=== PATIENT | male | born 2005 | race Caucasian/White ===

== ENCOUNTER 2024-10-21 14:39 | Emergency (ER) | payer OTHER, SELFPAY ==
[2024-10-21 14:44] VITALS: BP 146/78
[2024-10-21 15:06] LABS: % Basophils 0.3 % (0-2); % Eosinophils 0.8 % (0-6); % Immature Granulocytes 0.2 % (0-0.5); % Monocytes 8.5 % (1.7-9.3); % Neutrophils 74.2 % (42.2-75.2); Absolute Eosinophils 0.1 10^3/uL (0-0.7); Absolute Lymphocytes 1.5 10^3/uL (1.2-3.4); Absolute Monocytes 0.8 10^3/uL (0.1-0.6); Absolute Neutrophils 7.1 10^3/uL (1.4-6.5); Hematocrit 43.2 % (39.0-52.0); Hemoglobin 14.3 g/dL (13.0-18.0); Mean Corp Hgb Conc. 33.1 g/dL (33.0-37.0); Mean Corpuscular Hgb 29.5 pg (27.0-31.0); Mean Corpuscular Volume 89.1 fL (80.0-94.0); Mean Platelet Volume 9.2 fL (7.4-10.4); Nucleated Red Blood Cells % 0 % (-); Platelet Count 214 10^3/uL (130-400); Red Blood Cell Count 4.85 10^6/uL (4.70-6.10); Red Cell Dist. Width 13.9 % (11.5-14.5); Urine Albumin Negative (Neg - Trace); Urine Bilirubin Negative (Negative); Urine Character Clear (Clear); Urine Color Yellow; Urine Glucose Negative (Negative); Urine Ketone Negative (Negative); Urine Leukocyte Negative (Negative); Urine Nitrite Negative (Negative); Urine Occult Blood Negative (Negative); Urine Urobilinogen Negative (Neg - 1+); White Blood Cell Count 9.6 10^3/uL (4.8-10.8)
[2024-10-21 15:23] LABS: ALT (SGPT) 29 U/L (0-50); AST (SGOT) 28 U/L (17-59); Albumin 4.8 g/dl (3.5-5.0); Alkaline Phosphatase 41 U/L (38-126); Blood Urea Nitrogen 22 mg/dl (9-20); Calcium 9.9 mg/dl (8.4-10.2); Carbon Dioxide 32 mmol/L (22-30); Chloride 106 mmol/L (98-107); Glucose 92 mg/dl (70-99); Lipase 107 U/L (23-300); Potassium 4.7 mmol/L (3.5-5.1); Sodium 143 mmol/L (135-145); Total Bilirubin 0.8 mg/dl (0.2-1.3); Total Protein 7.7 g/dl (6.3-8.2); eGFR > 60.00
--- NOTE | 2024-10-21 18:16 | ED.GENMED ---
History of Present Illness
General
Chief Complaint: Abdominal Pain
Source: patient
Exam Limitations: none
Time Seen by Provider: 10/21/24 17:59
History of Present Illness
History of Present Illness:
See MDM
Past History
Past History
ED Past Medical History: None
ED Past Surgical History: None
Social History
Tobacco: Non-smoker
Alcohol: None
Phy Exam
Physical Exam
Physical Exam:
See MDM
Course
Orders/Labs/Results
Orders:
Orders
10/21/24 14:50
US Scrotum Urgent
Comment:
Reason For Exam: R testicular pain
10/21/24 14:58
Complete Blood Count/With Diff Urgent
Comprehensive Metabolic Panel Urgent
Lipase Urgent
Urinalysis Reflex To Culture Urgent
Date Specimen was Collected: 10/21/24
Time Specimen was Collected: 14:50
10/21/24 18:15
CT Abd/pel Without Iv Or Oral Urgent
Comment:
Reason For Exam: R groin pain
Abnormal Lab Results
10/21/24
14:58
Absolute Neuts (auto) 7.1 H 10^3/uL
(1.4-6.5)
Absolute Monos (auto) 0.8 H 10^3/uL
(0.1-0.6)
Lymphocytes % 16.0 L %
(20.5-51.1)
Carbon Dioxide 32 H mmol/L
(22-30)
BUN 22 H mg/dl
(9-20)
10/21/24 14:58
10/21/24 14:58
Vital Signs
Initial and Last Documented VS:
Initial Vital Signs
Temp Pulse Resp BP Pulse Ox
97.9 F 60 18 146/78 97
10/21/24 14:44 10/21/24 14:44 10/21/24 14:44 10/21/24 14:44 10/21/24 14:44
Last Documented Vital Signs
Temp Pulse Resp BP Pulse Ox
97.9 F 60 18 111/60 100
10/21/24 14:44 10/21/24 14:44 10/21/24 14:44 10/21/24 18:40 10/21/24 18:41
MDM/Problems Addressed
Differential Diagnosis Includes:
HPI and MDM Narrative:
19-year-old male presenting with resolved right groin pain. Patient states he was working on a tractor with his father and developed sudden onset of right groin pain. He describes the pain in his abdomen going down into his groin. This has been
an intermittent issue in the past but it has never been this bad. On arrival, all symptoms appear to have resolved. On my exam, he has very mild tenderness near the epididymis but ultrasound shows no evidence of torsion or epididymitis. We went
over the incidental findings of the ultrasound and discussed outpatient follow-up with urology. Given the mild pain in the area, will obtain CT to rule out any evidence of kidney stone versus inguinal herniation
Physical exam
General: Well appearing and non-toxic
HEENT: protecting airway
Neck: appears supple
CV: No evidence of cyanosis
Resp: No accessory muscle use
Abd: Non-distended
: No scrotal swelling or clinical evidence of torsion. Mild tenderness to right inguinal canal
Extremities: No deformities
Neuro: alert
Psych: Normal affect
Skin: Intact
Problems Addressed including Acute and Chronic Conditions affecting care:
1. Right groin pain
Acuity: acute
Prognosis: stable
Details: Potentially related to a strain. Ultrasound negative for torsion or epididymitis. Will obtain CT to rule out any evidence of kidney stone or hernia
Updates
Urinalysis negative. Ultrasound negative. Given the intermittent pain, will obtain CT to rule out any evidence of hernia versus kidney stone.
CT negative. Discussed the incidental finding of constipation. Discussed follow-up with urology
Differential Diagnosis (but not limited to): Groin strain, epididymitis, intermittent torsion, inguinal hernia, kidney
Testing considered: CT with IV contrast
Drug therapy (if applicable): OTC meds, please see d/c instruction regarding Rx drugs
Amount and/or Complexity of Data Reviewed
Clinical info obtained from: Patient
External data reviewed: N/A
Labs I independently reviewed (but not limited to): Urinalysis negative, white blood cell count normal
Radiology: Ultrasound report reviewed
The CT scan was personally and independently reviewed. In addition, official CT report reviewed.
Pulse Ox: not hypoxic
EKG independently reviewed: N/A
Finish Production Manager: N/A
Critical Care: N/A
Risk of Complication:
Social Determinants of health: Good social support
Discussed with other providers: N/A
Escalation of Care includes Admit/Obs: After being observed in the Emergency Department, pt stable for discharge.
Occasional wrong word or 'sound a like' substitutions may have occurred due to the inherent limitations of voice recognition software. Read the chart carefully and recognize, using context, where substitutions have occurred.
*Critical Care Note
Total Time (30-74mins, 75-104mins- exclusive of procedures): Not Applicable
ED Attending Note
-
Portions of this chart may have been created with voice recognition software.� Occasional wrong word or��sound alike� substitutions may have occurred due to the inherent limitations of voice recognition software.
Discharge Plan
Departure
Patient Disposition: Home (Routine Discharge)
Date of Disposition: 10/21/24
Time of Disposition: 21:23
Patient with high blood pressure during this ER visit?: No
Discharge Problem:
Rt groin pain
Prescriptions:
No Action
No Current Medications
Referrals:
Eric Floyd MD [Active] -
UNKNOWN - PT NOT,INTERVIEWE [Family Provider] -
Activity Restrictions/Additional Instructions:
Please return for any worsening symptoms.
You may return at any time if you have further concerns.
Please follow up with your doctor at the first available appointment, preferably this week.
Please make an appointment to see the urologist in regards to your intermittent groin pain.
Thank you for choosing [facility].
Interventions
Interventions:
*Risk Screen - Suicide Last Done: 10/21/24 14:44
*General Assessment Last Done: 10/21/24 18:41
*Neglect/Abuse Screening Last Done: 10/21/24 18:41
*ED- Fall Risk Assessment Last Done: 10/21/24 18:41
*ED COVID-19 Vaccine History Last Done: 10/21/24 18:41
TG-Tryzvj-Zjvhlzkvwm Assessment Last Done: 10/21/24 18:41
Discharge Date and Time
Print Language: [place]
[2024-10-21 18:38] VITALS: BMI 21.4
[2024-10-21 18:40] VITALS: BP 111/60
== END 2024-10-21 21:46 | disposition home or self-care (01) ==
LOC: EMR 14:39
PROVIDERS: Emergency Medicine; EMERGENCY PHYSICIAN Student in an Organized Health Care Education/Training Program; FAMILY PHYSICIAN Internal Medicine
DX: R10.31 Right lower quadrant pain (principal)
CPT/HCPCS: 99284; 74176; 76870; 80053; 81003; 83690; 85025; 93976